=== PATIENT | male | born 1950 | race Caucasian/White ===

== ENCOUNTER → 2025-01-04 | Outpatient (CLI) | payer MEDICARE, MEDICAID | END | disposition home or self-care (01) | LOC: MRI 09:17 | PROVIDERS: ATTEND Internal Medicine Critical Care Medicine | DX: M47.817 Spondylosis without myelopathy or radiculopathy, lumbosacral region (principal); M47.812 Spondylosis without myelopathy or radiculopathy, cervical region; M51.370 Other intervertebral disc degeneration, lumbosacral region with discogenic back pain only; M43.8X6 Other specified deforming dorsopathies, lumbar region; M48.07 Spinal stenosis, lumbosacral region; M48.02 Spinal stenosis, cervical region; M25.78 Osteophyte, vertebrae; R60.0 Localized edema; M54.2 Cervicalgia | CPT/HCPCS: 72141; 72148 ==